=== PATIENT | female | born 1950 | race Caucasian/White ===

== ENCOUNTER 2017-05-20 15:53 | Emergency (ER) | payer MEDICARE, OTHER ==
[~2017-05-20] VITALS: Ht 160 cm; Wt 117.9 kg
--- NOTE | ~2017-05-20 | CR126 ---
[facility] A Service of [facility] RADIOLOGY TEXT RESULTS PATIENT: YSABEL BRISCOE LOCATION: CFTX : 50 UNIT #: [id number] AGE: [address]: Aminah Vargas APRN SEX: F ORDER DR: [id number] [facility] [address] [facility] [place], [place] [address] [id number] E MR#: [id number] Acc #: [id number] NAME: YSABEL BRISCOE : 1950 SEX: F STUDY DATE/TIME: 05/20/2017 17:33 UNIT: [facility] ROOM: STUDY DESCRIPTION: CR Foot Complete Min 3 View Lt Attending Physician: Aminah Vargas A.P.R.N. Ordering Physician: Ed Harry Ngo M.D. Primary Care Physician: Brittaney Nieot A.P.R.N. MEDICAL IMAGING REPORT This report is preliminary unless electronic signature is present EXAM Left foot, 3 views. HISTORY Foot pain for 1 week. No injury. FINDINGS Three views of the left ankle demonstrate normal bone alignment. Mild degenerative changes at the first MTP joint and moderate sized posterior and plantar calcaneal spurs. IMPRESSION No acute findings. Dictated by... Gaetano Marshall M.D. THIS IS AN ELECTRONICALLY VERIFIED REPORT Gaetano Marshall M.D. at 05/21/2017 2:17 PM DFL/bianca TD: 05/21/2017 07:36 JOB #: [id number] MEDICAL IMAGING REPORT Page 1 of 1 COPY
[~2017-05-20 15:53] MED LIST: ALEVE PO; BACTRIM 400-801 TA1 PO; CALCIUM 500 + D1 TAB PO; CLEOCIN PO; KEFLEX500 M1 PO; LISINOPRIL20 MG PO; LORTAB 7.5-5001 TAB PO; MAXZIDE 75/50 T1 TAB PO; MELOXICAM7.5 MG/5 M PO; VOLTAREN50 MG PO
== END 2017-05-20 18:53 | disposition home or self-care (01) ==
LOC: CED 15:53 → CFTX 15:53
DX: S90.32XA Contusion of left foot, initial encounter (principal); I10 Essential (primary) hypertension; Z79.899 Other long term (current) drug therapy; X58.XXXA Exposure to other specified factors, initial encounter
CPT/HCPCS: 29405; 73630; 99283